=== PATIENT | male | born 1960 | race Caucasian/White ===

== ENCOUNTER 2018-09-06 17:39 | Emergency (ER) | payer SELFPAY ==
[2018-09-06 17:52] LABS: Base Excess-Venous -16.7 mmol/L (0 (+/- 2.5)); Bicarbonate (HCO3v) 18.3 mmol/L (1.0-85.0); CO2 Tension (PvCO2) 100.2 mmHg (41.0-51.0); Calcium, Ionized 1.16 mmol/L (1.12-1.32); Hemoglobin - Calc 12.9 g/dL (12.0-18.0); Lactate 9.33 mmol/L (0.50-2.20); O2 Tension (PvO2) 64.6 mmHg (35.0-45.0); Potassium 5.3 mmol/L (3.4-4.7); T. Carbon Dioxide 21.4 mmol/L (1.0-85.0); pH (Venous) 6.869 (7.35-7.45)
[2018-09-06] MEDS ORDERED: Sodium Bicarb 50 MEQ/50 ML Abboject 8.4% SYRINGE ONE ×2 (17:53→20:00)
[2018-09-06] MEDS ORDERED: Sodium Bicarbonate 150 MEQ in Dextrose 5% in Water 1,000 ML IVP SCH (18:00)
[2018-09-06] MEDS ORDERED: EPINEPHrine 1 MG/10 ML Abboject SYRINGE ONE (20:00)
[2018-09-06] MEDS ORDERED: Atropine Sulfate 1 mg/10 ml Syringe ONE (20:00)
== END 2018-09-06 18:06 | disposition expired ==
LOC: ERS 17:39
DX: I46.9 Cardiac arrest, cause unspecified (principal)
CPT/HCPCS: 82330; 82435; 82565; 82803; 82947; 83605; 84132; 84295; 85014; 92950; 93005; 96365; 96374; 96375; J0171; J0282; J0461; J7070